=== PATIENT | female | born 1970 | race Caucasian/White ===

== ENCOUNTER → 2018-09-04 | Outpatient (CLI) | payer OTHER ==
[~2018-09-04] MED LIST: BRAIN MIGHT-DH1 EACH PO; FOLIC ACID1 MG PO; IRON325 PO; KEFLEX500 M1 PO; LACTULOSE20 GM/30 M PO; MAGOX 400400 MG PO; MIDODRINE HCL 55 M1 PO; PROPRANOLOL 1010 MG PO; PROTONIX40 M1 PO; XIFAXAN550 MG PO; ZANTAC 150MG T150 MG PO
== END | disposition home or self-care (01) ==
LOC: ULTRA 12:30
DX: R18.8 Other ascites (principal); Z79.899 Other long term (current) drug therapy; Z87.440 Personal history of urinary (tract) infections